=== PATIENT | male | born 1950 | race African-American/Black ===

== ENCOUNTER 2019-03-13 10:01 | Emergency (ER) | payer MEDICARE, MEDICAID ==
[~2019-03-13] VITALS: Ht 177.8 cm; Wt 107.0 kg
[2019-03-13 10:17] VITALS: BP 121/83
== END 2019-03-13 12:36 | disposition home or self-care (01) ==
LOC: ER 10:01
DX: S80.01XA Contusion of right knee, initial encounter (principal); S70.11XA Contusion of right thigh, initial encounter; V87.8XXA Person injured in other specified noncollision transport accidents involving motor vehicle (traffic), initial encounter; Y93.I9 Activity, other involving external motion; Y92.488 Other paved roadways as the place of occurrence of the external cause; Y99.8 Other external cause status